=== PATIENT | female | born 1985 | race Asian ===

== ENCOUNTER 2017-02-13 13:56 | Emergency (ER) | payer MEDICAID ==
[~2017-02-13] VITALS: Ht 152.4 cm; Wt 48.5 kg
[2017-02-13 14:02] VITALS: BP 115/58
== END 2017-02-13 16:05 | disposition home or self-care (01) ==
LOC: ER 13:56
DX: M54.2 Cervicalgia (principal); M54.9 Dorsalgia, unspecified; R51 Headache; V43.52XA Car driver injured in collision with other type car in traffic accident, initial encounter; Y93.89 Activity, other specified; Y99.8 Other external cause status; Y92.89 Other specified places as the place of occurrence of the external cause
CPT/HCPCS: 70450; 72125